=== PATIENT | male | born 1990 | race Caucasian/White ===

== ENCOUNTER 2023-04-23 04:06 | Day surgery (SDC) | payer OTHER ==
[~2023-04-23] VITALS: Ht 180.3 cm; Wt 111.1 kg
[2023-04-23] VITALS (212 sets, daily range): BP systolic 87–153; BP diastolic 34–90
[2023-04-23 09:30] LABS: BASO% 0.8 % (0-3); EOS% 1.8 % (0-8); HEMATOCRIT 38.3 % (39.0-50.0); HEMOGLOBIN 12.6 g/dl (14.0-18.0); IMMATURE GRANULOCYTES 0.1 % (0.0-5.0); LYMPH% 35.3 % (15-41); MEAN CELL VOLUME 90.5 fL CALC (80.0-100.0); MEAN CORPUSCULAR HGB 29.8 pG CALC (26.0-32.0); MEAN CORPUSCULAR HGB CONC 32.9 g/dL CAL (32.0-36.0); MONO% 6.8 % (2-13); NEUT# 4.7 thou/uL (1.82-7.42); NEUT% 55.2 % (42-76); RED BLOOD COUNT 4.23 mill/uL (4.70-6.10); RED CELL DISTRI WIDTH 12.9 % (11.5-15.5)
[2023-04-23 09:36] LABS: ALKALINE PHOSPHATASE 61 u/l (38-126); ANION GAP 10 (6-22 (CALC)); BILIRUBIN, TOTAL 0.4 mg/dL (0.2-1.3); BUN 28 mg/dL (9-20); BUN/CREATININE RATIO 35 (12-20 (CALC)); CARBON DIOXIDE 28 mmol/l (22-30); CHLORIDE 103 mmol/l (95-108); CREATININE 0.8 mg/dL (0.7-1.3); GFR FOR AFR.AMER. > 60 ML/MIN (>=60 (CALC)); GFR OTHER RACES > 60 ML/MIN (>=60 (CALC)); SGOT/AST 32 u/l (17-59); SODIUM 137 mmol/l (137-146); TOTAL PROTEIN 7.3 g/dL (6.3-8.2)
[2023-04-23] MEDS ORDERED: NALTREXONE50 MG PO (17:56)
[2023-04-23] MEDS ORDERED: KLONOPIN2 MG PO (17:57)
[2023-04-23] MEDS ORDERED: CLONIDINE0.1 MG PO (17:57)
[2023-04-24 03:35] VITALS: BP 140/63
[2023-04-24 04:00] VITALS: BP 140/63
[2023-04-24 05:19] LABS: BASO% 0.1 % (0-3); HEMATOCRIT 40.2 % (39.0-50.0); HEMOGLOBIN 13.8 g/dl (14.0-18.0); IMMATURE GRANULOCYTES 0.2 % (0.0-5.0); LYMPH% 4.2 % (15-41); MEAN CORPUSCULAR HGB 30.2 pG CALC (26.0-32.0); MEAN CORPUSCULAR HGB CONC 34.3 g/dL CAL (32.0-36.0); MONO% 1.3 % (2-13); NEUT# 15.54 thou/uL (1.82-7.42); NEUT% 94.2 % (42-76); RED BLOOD COUNT 4.57 mill/uL (4.70-6.10); RED CELL DISTRI WIDTH 12.5 % (11.5-15.5)
[2023-04-24 05:38] LABS: ALBUMIN 3.8 g/dL (3.2-5.0); ALKALINE PHOSPHATASE 70 u/l (38-126); ANION GAP 11 (6-22 (CALC)); BILIRUBIN, TOTAL 0.4 mg/dL (0.2-1.3); BUN 13 mg/dL (9-20); BUN/CREATININE RATIO 20 (12-20 (CALC)); CHLORIDE 111 mmol/l (95-108); CREATININE 0.7 mg/dL (0.7-1.3); GFR FOR AFR.AMER. > 60 ML/MIN (>=60 (CALC)); GFR OTHER RACES > 60 ML/MIN (>=60 (CALC)); MAGNESIUM 2.4 mg/dL (1.6-2.3); POTASSIUM 3.8 mmol/l (3.5-5.1); SGOT/AST 32 u/l (17-59); SODIUM 140 mmol/l (137-146); TOTAL PROTEIN 7.1 g/dL (6.3-8.2)
[2023-04-24 05:39] LABS: CARBON DIOXIDE 22 mmol/l (22-30)
[2023-04-24 08:00] VITALS: BP 121/67
== END 2023-04-24 15:00 | disposition home or self-care (01) | DRG 897 ==
LOC: ANR 04:06 → MS2 04:08 → ANR 09:00 → MS2 17:02 → ANR 04-24 15:00
PROVIDERS: ATTEND Anesthesiology Critical Care Medicine
DX: F11.20 Opioid dependence, uncomplicated (principal)
CPT/HCPCS: J0131; J2060; J2354; J3475